=== PATIENT | male | born 1985 | race African-American/Black ===

== ENCOUNTER 2018-02-03 10:20 | Emergency (ER) | payer BC ==
[~2018-02-03] VITALS: Ht 185.4 cm; Wt 96.6 kg
[~2018-02-03 10:20] MED LIST: ACCUNEB SO1.25 MG/1; CLARITIN10 MG; ONDANSETRON HCL4 M2 PO; VENTOLIN HFA 1818 GM
[2018-02-03 11:02] LABS: ABSOLUTE NEUTROPHILS 11.2 thou/uL (1.4-8.2); BASOPHILS 0.4 % (0.0-2.0); EOSINOPHILS 0.1 % (0.0-3.0); HEMATOCRIT 50.3 % (42.0-52.0); HEMOGLOBIN 17.5 gm/dL (14.0-18.0); MCH 29.3 pg (26.0-34.0); MCHC 34.9 g/dL (28.0-37.0); MCV 84.1 fL (80.0-100.0); PLATELET COUNT 365 thou/uL (150-400); POLYS 85.5 % (36.0-66.0); RBC 5.98 mil/uL (4.50-6.00); RDW 12.9 % (10.5-14.5); WBC 13.2 thou/uL (4.0-11.0)
[2018-02-03 11:04] LABS: CALCIUM 10.5 mg/dL (8.5-10.1); POTASSIUM 3.4 mmol/L (3.5-5.1)
[2018-02-03 11:09] LABS: ALBUMIN 4.6 g/dL (3.4-5.0); TOTAL BILIRUBIN 0.7 mg/dL (<0.1-1.0); TOTAL PROTEIN 8.6 g/dL (6.4-8.2)
[2018-02-03] MEDS ORDERED: FLOMAX0.4 MG PO (12:47)
[2018-02-03] MEDS ORDERED: NORCO 5-325 TA1 EACH PO (12:47)
[2018-02-03] MEDS ORDERED: ZOFRAN ODT4 M1 PO ×2 (12:47→13:18)
[2018-02-03 12:57] LABS: URINE BLOOD NEGATIVE (Negative); URINE CLARITY CLEAR; URINE COLOR YELLOW; URINE GLUCOSE-RANDOM* NEGATIVE (Negative); URINE KETONES 3+ (Negative); URINE LEUKOCYTES-REFLEX NEGATIVE (Negative); URINE NITRITE-REFLEX NEGATIVE (Negative); URINE PROTEIN (DIPSTICK) TRACE (Negative); URINE UROBILINOGEN 0.2 E.U./dl (0.2-1.0)
[2018-02-03 13:04] LABS: ICTOTEST (BILI CONFIRMATORY) Negative (Negative); URINE BILIRUBIN NEGATIVE (Negative)
[2018-02-03 13:08] LABS: URINE REDUCING SUBSTANCE NEGATIVE
[2018-02-03 13:44] VITALS: BP 130/77
== END 2018-02-03 13:45 | disposition home or self-care (01) ==
LOC: ER 10:20
PROVIDERS: Nurse Practitioner Family
DX: K52.9 Noninfective gastroenteritis and colitis, unspecified (principal); J45.909 Unspecified asthma, uncomplicated

== ENCOUNTER 2018-02-03 17:58 | Inpatient (IN) | payer BC ==
[~2018-02-03] VITALS: Ht 185.4 cm; Wt 96.6 kg
--- NOTE | ~2018-02-03 | P ---
[facility] [place] [address] PROCEDURE REPORT Name: AVILA MAY Room #: 432-P [facility] IN M.R.#: [id number] Admission: 02/03/18 Attend Phys: Tad Lipscomb MD Discharge: Date of : 85 Report #: [id number] THIS REPORT FOR: //name// CC: [facility] physician/PCP Tad Lipscomb BRIEF HISTORY: The patient is a 32-year-old male who presented with abdominal pain. He also had diarrhea as well as nausea and vomiting and hematemesis. Hematemesis did not occur immediately. PREOPERATIVE DIAGNOSES: Hematemesis, abdominal pain and diarrhea. POSTOPERATIVE DIAGNOSES: 1. Multiple gastric ulcers. 2. Moderate to severe diffuse gastritis. 3. Duodenitis. MEDICATIONS: Deep sedation with propofol per anesthesia. SPECIMEN: Biopsies of gastric ulcers. ESTIMATED BLOOD LOSS: 3 mL. PROCEDURE: EGD with biopsy. FINDINGS: Prior to propofol sedation, procedure of upper endoscopy discussed with the patient as well as potential risks and its complications. He indicates he understands and desires to proceed. DESCRIPTION OF PROCEDURE: With the patient in left lateral decubitus position, the Olympus video endoscope was inserted in the cervical esophagus under direct vision without difficulty. Examination of this organ through its entire length revealed normal esophageal mucosa down the squamocolumnar junction. The squamocolumnar junction was inspected and noted to be unremarkable. There is no evidence of ulcers, erosions, or Ludy-Vann tear. However, the scope was advanced. A small hiatus hernia was seen. Mucosa in the hiatus hernia was unremarkable. The scope was advanced in the stomach, was examined on end view as well as retroflexed views. A small amount of nonbloody liquidy material, which was aspirated away. Upon further inspection of the stomach, he was noted have a diffuse gastritis with moderately severe diffuse erythema. There is also diffuse mucosal edema. In the distal body of the stomach and extending somewhat into the antrum, two large geographic ulcers were seen. They were relatively shallow. Their borders were quite indistinct. The larger one was probably 4-5 cm in greatest dimension. They had white exudate without evidence of exposed vessels or bleeding. They had a benign appearance. The mucosa in the prepyloric antrum was intact, was diffusely erythematous consistent with gastritis. Multiple biopsies obtained of the ulcers. The pylorus is [address] [address] PROCEDURE REPORT Name: AVILA MAY Room #: 432-P [facility] IN M.R.#: [id number] Admission: 02/03/18 Attend Phys: Tad Lipscomb MD Discharge: Date of : 85 Report #: [id number] unremarkable. Examination of duodenal bulb revealed moderate diffuse erythema, but no ulcers or bleeding lesions. The second and third portion of duodenum were inspected and noted to be unremarkable. At that point, the scope was slowly withdrawn and careful circumferential views confirmed the above findings. The patient tolerated the procedure well. DISPOSITION: The patient with ulcers as noted above. His initial presentation was suspicious of an acute illness such as an acute gastroenteritis with diarrhea, abdominal pain, nausea and vomiting. However, he has extensive ulcerations noted above. He does take a medicine for a bulging disk, but he does not know the name of the medication. It may be a nonsteroidal. However, he does not take it on a daily basis. At this point in time, we will treat with PPI. We will follow up on biopsies, which are pending. I agree with cha as well. We will have the patient return in about 8 weeks for followup endoscopy to ensure healing of the ulcer. We will make further recommendations after review of the biopsies. <ELECTRONICALLY SIGNED> By: Chaz Loya MD 02/08/18 0732 [id number] Chaz Loya MD /nt
--- NOTE | ~2018-02-03 | HC ---
[facility] [place] [address] CONSULTATION Name: AVILA MAY Room #: [address] [place] [address] IN M.R.#: [id number] Admission: 02/03/18 Attend Phys: Tad Lipscomb MD Discharge: 02/08/18 Date of : 85 Report #: [id number] THIS REPORT FOR: //name// CC: [facility] physician/PCP Tad Lipscomb DATE OF SERVICE: 02/05/2018 REQUESTING PROVIDER: Tad Lipscomb M.D. REASON FOR CONSULTATION: Diarrhea/abdominal pain, now with nausea and bloody specks in the vomitus. HISTORY OF PRESENT ILLNESS: This 32-year-old male, otherwise healthy, presents with onset of abdominal pain, some diarrhea and nausea and vomiting with onset on 02/02/2018. Symptoms persisted. He presented to this facility and has been admitted. The patient feels perhaps a little better today. PAST MEDICAL HISTORY: Unremarkable. He was on no medication as an outpatient. CURRENT MEDICATIONS: Include pantoprazole, p.r.n. ondansetron, p.r.n. metoclopramide. ALLERGIES: There are no known drug allergies. FAMILY AND SOCIAL HISTORY: Unremarkable. PHYSICAL EXAMINATION: VITAL SIGNS: He has been afebrile and hemodynamically stable. GENERAL: Well-developed, well-nourished. He appears alert, oriented x 3 with no distress. ABDOMEN: Soft. Bowel sounds are present and normoactive. No hepatosplenomegaly. No masses palpated. There is mild diffuse tenderness mostly on the right side without peritoneal signs. LABORATORY DATA: White count on admission was 15, it has not been repeated. His hemoglobin is 13.7 with hydration. Platelet count is 314,000. Electrolytes are normal. BUN and creatinine are normal. LFTs are normal. Lipase was 401 on admission, it is normal now. Urinalysis is unremarkable. The patient had a sonogram as well as a CT with nonspecific findings. IMPRESSION: Abdominal pain, nausea, vomiting and diarrhea that seemed to be improving. Consider a viral gastroenteritis. Recommend clinical observation. [facility] [address] [place] [address] CONSULTATION Name: [facility] Room #: [address] [place] [address] IN M.R.#: [id number] Admission: 02/03/18 Attend Phys: Tad Lipscomb MD Discharge: 02/08/18 Date of : 85 Report #: [id number] If still symptomatic, proceed with EGD and colonoscopy as an inpatient on 02/07/2018. <ELECTRONICALLY SIGNED> By: Lito Sylvester MD 02/11/18 0832 [id number] Paolo Butcher MD /nt
--- NOTE | ~2018-02-03 | PATH ---
[facility] [place] [address] PATHOLOGY RPT PROCEDURE Name: MAURI MAY Room #: 432-P [facility] IN M.R.#: [id number] Admission: 02/03/18 Date of : 85 Discharge: 02/08/18 Report #: [id number] Path Case #: [id number] [facility] Accession Number: [id number] . 01 Material submitted: . GASTRITIS R/O H PYLORI . 01 Clinical history: . Pre-OP DX: Hematemesis, abdominal pain Post-OP DX: Gastritis, gastric ulcer, severe hiatal hernia . 02 Diagnosis: Gastric biopsy: - Acute deep penetrating gastric ulcer. - The immunoperoxidase stain for Helicobacter pylori is negative. - The immunostain for cytokerstin AE1/AE3 in the ulcer is negative. (SHA:griffin; 02/08/2018) QMS/02/10/2018 . 02 Comment: No obvious malignancy is seen. Suggest clinical correlation. . 02 Electronically signed: . Marlon Mortensen MD, Pathologist NPI- [id number] . 01 Gross description: . Received in formalin labeled "Mauri May, gastritis, rule out H. pylori," are multiple segments of goldstein soft tissue measuring 1.1 x 0.3 x 0.1 cm in aggregate dimensions. The specimen is filtered and entirely submitted in cassette A1. (TSD; 02/07/2018) TOB/TOB . 02 Pathologist provided ICD-10: K25.3 . 02 CPT . 193495, K86661, T53799 Specimen Comment: A courtesy copy of this report has been sent to Specimen Comment: [phone], . Specimen Comment: Report sent to / DR POWERS Specimen Comment: A duplicate report has been generated due to demographic updates. Performed at: [address], [place], [place] [id number] [place] [address] PATHOLOGY RPT PROCEDURE Name: MAYMAURI Room #: 432-P [facility] IN M.R.#: [id number] Admission: 02/03/18 Date of : 85 Discharge: 02/08/18 Report #: [id number] Path Case #: [id number] MD Alonzo Issa MD Phone: [phone] Performed at: [address] [id number] MD Carie Warner MD Phone: [phone]
[~2018-02-03 17:58] MED LIST changes: +FLOMAX0.4 MG PO; +NORCO 5-325 TA1 EACH PO; +ZOFRAN ODT4 M1 PO
[2018-02-03 18:10] VITALS: BP 137/75
[2018-02-03 18:53] LABS: CALCIUM 9.9 mg/dL (8.5-10.1); CREATININE 1.1 mg/dL (0.7-1.3); POTASSIUM 3.6 mmol/L (3.5-5.1)
[2018-02-03 18:54] LABS: ABSOLUTE NEUTROPHILS 13.3 thou/uL (1.4-8.2); BASOPHILS 0.5 % (0.0-2.0); HEMATOCRIT 48.8 % (42.0-52.0); LYMPHOCYTES 6.8 % (24.0-44.0); MCH 29.2 pg (26.0-34.0); MCHC 34.9 g/dL (28.0-37.0); MCV 83.6 fL (80.0-100.0); PLATELET COUNT 363 thou/uL (150-400); POLYS 84.7 % (36.0-66.0); RBC 5.83 mil/uL (4.50-6.00); RDW 13.1 % (10.5-14.5); WBC 15.7 thou/uL (4.0-11.0)
[2018-02-03 18:59] LABS: ALBUMIN 4.4 g/dL (3.4-5.0); DIRECT BILIRUBIN 0.2 mg/dL (<0.1-0.3); TOTAL BILIRUBIN 0.7 mg/dL (<0.1-1.0); TOTAL PROTEIN 8.3 g/dL (6.4-8.2)
[2018-02-03 20:49] LABS: URINE BLOOD 2+ (Negative); URINE CLARITY CLEAR; URINE COLOR YELLOW; URINE GLUCOSE-RANDOM* NEGATIVE (Negative); URINE KETONES 2+ (Negative); URINE LEUKOCYTES-REFLEX NEGATIVE (Negative); URINE NITRITE-REFLEX NEGATIVE (Negative); URINE PROTEIN (DIPSTICK) TRACE (Negative); URINE UROBILINOGEN 0.2 E.U./dl (0.2-1.0)
[2018-02-03 20:50] LABS: ICTOTEST (BILI CONFIRMATORY) Negative (Negative); URINE BILIRUBIN NEGATIVE (Negative)
[2018-02-03 20:58] LABS: BACTERIA-REFLEX None Seen /HPF (None Seen); CASTS None Seen /LPF (None Seen); CRYSTALS None Seen /LPF (None Seen); SQUAMOUS None Seen /LPF (0-3); URINE WBC-REFLEX 0-5 Rare /HPF (0-5)
[2018-02-03 22:42] VITALS: BP 147/67
[2018-02-03 22:54] VITALS: BP 147/67
[2018-02-03 23:25] VITALS: BP 123/73
[2018-02-04 04:27] VITALS: BP 112/54
[2018-02-04 04:28] LABS: HEMATOCRIT 44.6 % (42.0-52.0); HEMOGLOBIN 15.4 gm/dL (14.0-18.0); MCH 29.4 pg (26.0-34.0); MCHC 34.6 g/dL (28.0-37.0); MCV 85.1 fL (80.0-100.0); RBC 5.24 mil/uL (4.50-6.00); RDW 13.2 % (10.5-14.5)
[2018-02-04 04:36] LABS: CALCIUM 9.1 mg/dL (8.5-10.1); CREATININE 1.1 mg/dL (0.7-1.3); POTASSIUM 3.4 mmol/L (3.5-5.1)
[2018-02-04 11:51] VITALS: BP 112/54
[2018-02-04 13:39] LABS: HEMOGLOBIN 14.8 gm/dL (14.0-18.0)
[2018-02-04 16:19] VITALS: BP 123/74
[2018-02-04 20:42] VITALS: BP 122/65
[2018-02-04 21:10] LABS: HEMATOCRIT 40.2 % (42.0-52.0)
[2018-02-05 04:55] VITALS: BP 129/63
[2018-02-05 05:24] LABS: HEMATOCRIT 39.3 % (42.0-52.0); HEMOGLOBIN 13.7 gm/dL (14.0-18.0)
[2018-02-05 06:03] LABS: ALBUMIN 3.1 g/dL (3.4-5.0); CALCIUM 8.3 mg/dL (8.5-10.1); CREATININE 0.9 mg/dL (0.7-1.3); DIRECT BILIRUBIN 0.2 mg/dL (<0.1-0.3); MAGNESIUM 1.9 mg/dL (1.8-2.4); POTASSIUM 3.3 mmol/L (3.5-5.1); TOTAL BILIRUBIN 0.7 mg/dL (<0.1-1.0); TOTAL PROTEIN 5.6 g/dL (6.4-8.2)
[2018-02-05 07:36] VITALS: BP 133/84
[2018-02-05 10:59] VITALS: BP 133/84
[2018-02-05 16:27] VITALS: BP 133/68
[2018-02-05 20:30] VITALS: BP 140/77
[2018-02-06 04:30] VITALS: BP 124/68
[2018-02-06 06:36] LABS: HEMATOCRIT 41.7 % (42.0-52.0); HEMOGLOBIN 14.7 gm/dL (14.0-18.0); MCH 29.8 pg (26.0-34.0); MCHC 35.2 g/dL (28.0-37.0); MCV 84.6 fL (80.0-100.0); RBC 4.93 mil/uL (4.50-6.00); RDW 12.7 % (10.5-14.5); WBC 7.8 thou/uL (4.0-11.0)
[2018-02-06 06:47] LABS: PLATELET COUNT 236 thou/uL (150-400)
[2018-02-06 06:52] LABS: CALCIUM 8.6 mg/dL (8.5-10.1); CREATININE 0.8 mg/dL (0.7-1.3); POTASSIUM 3.8 mmol/L (3.5-5.1)
[2018-02-06 07:36] VITALS: BP 118/63
[2018-02-06 07:58] LABS: ABSOLUTE NEUTROPHILS 5.5 thou/uL (1.4-8.2); PLATELET ESTIMATE NORMAL
[2018-02-06 17:05] VITALS: BP 125/84
[2018-02-06 19:54] VITALS: BP 125/65
[2018-02-07 04:53] VITALS: BP 101/55
[2018-02-07 07:50] VITALS: BP 117/57
[2018-02-07 09:00] VITALS: BP 117/57
[2018-02-07 16:15] VITALS: BP 148/60
[2018-02-07 20:02] VITALS: BP 141/78
[2018-02-08 03:48] VITALS: BP 129/54
[2018-02-08 04:00] LABS: HEMATOCRIT 43.9 % (42.0-52.0); HEMOGLOBIN 15.5 gm/dL (14.0-18.0); MCH 29.8 pg (26.0-34.0); MCHC 35.2 g/dL (28.0-37.0); MCV 84.6 fL (80.0-100.0); PLATELET COUNT 228 thou/uL (150-400); RBC 5.19 mil/uL (4.50-6.00); RDW 13.1 % (10.5-14.5); WBC 7.2 thou/uL (4.0-11.0)
[2018-02-08 04:14] LABS: CALCIUM 8.7 mg/dL (8.5-10.1); CREATININE 0.9 mg/dL (0.7-1.3); POTASSIUM 4.3 mmol/L (3.5-5.1)
[2018-02-08 06:28] LABS: ABSOLUTE NEUTROPHILS 3.3 thou/uL (1.4-8.2); ATYPICAL LYMPHS 1 %
[2018-02-08 07:40] VITALS: BP 119/58
[2018-02-08] MEDS ORDERED: PROTONIX40 M1 PO (09:35)
[2018-02-08 13:42] VITALS: BP 119/58
== END 2018-02-08 17:36 | disposition home or self-care (01) | DRG 377 ==
LOC: ER 17:58 → EROBS 22:39 → 4E 22:39 → ENTRNSPT 02-08 17:12 → 4E 02-08 17:36
PROVIDERS: Emergency Medicine; Hospitalist; Nurse Practitioner Acute Care
PROC: 0DB68ZX Excision of Stomach, Via Natural or Artificial Opening Endoscopic, Diagnostic (ICD-10-PCS; principal; 2018-02-07)
DX: K25.4 Chronic or unspecified gastric ulcer with hemorrhage (principal); E43 Unspecified severe protein-calorie malnutrition; K56.7 Ileus, unspecified; J45.909 Unspecified asthma, uncomplicated; K44.9 Diaphragmatic hernia without obstruction or gangrene; K29.81 Duodenitis with bleeding; K29.71 Gastritis, unspecified, with bleeding; Z79.1 Long term (current) use of non-steroidal anti-inflammatories (NSAID); Z79.899 Other long term (current) drug therapy; Z23 Encounter for immunization
CPT/HCPCS: 10084; 62110; 62900; 70005

== ENCOUNTER 2018-08-15 14:56 | Emergency (ER) | payer BC ==
[~2018-08-15] VITALS: Ht 185.4 cm; Wt 93.0 kg
[~2018-08-15 14:56] MED LIST changes: +PROTONIX40 M1 PO
[2018-08-15 16:30] VITALS: BP 130/76
== END 2018-08-15 16:30 | disposition home or self-care (01) ==
LOC: ER 14:56
DX: S01.81XA Laceration without foreign body of other part of head, initial encounter (principal); J45.909 Unspecified asthma, uncomplicated; W20.8XXA Other cause of strike by thrown, projected or falling object, initial encounter; Y93.89 Activity, other specified; Y92.89 Other specified places as the place of occurrence of the external cause; Y99.8 Other external cause status